=== PATIENT | female | born 1975 | race Caucasian/White ===

== ENCOUNTER → 2017-02-28 | Outpatient (CLI) | payer BC | LOC: LAB 16:23 | DX: R51 Headache (principal) ==

== ENCOUNTER → 2021-07-07 | Outpatient (CLI) | payer OTHER ==
[2021-07-07 17:24] LABS: BASO # 0.02 K/mm3 (0.02-0.10); EOS # 0.21 K/mm3 (0.04-0.40); EOS % 2.6 % (1.0-5.0); HEMATOCRIT 42.1 % (37.0-47.0); HEMOGLOBIN 14.1 g/dL (12.5-16.0); LYMPH# 2.79 K/mm3 (1.50-4.00); MEAN CELL VOLUME 89 fl (78-100); MEAN CORPUSCULAR HEMOGLOBIN 30 pg (27-31); MEAN CORPUSCULAR HGB CONC 34 g/dL (33-37); MEAN PLATELET VOLUME 11.6 fl (7.4-10.4); MONO # 0.55 K/mm3 (0.20-0.80); NEU # 4.44 K/mm3 (1.40-6.50); PLATELET COUNT 279 K/mm3 (130-400); RED BLOOD COUNT 4.73 M/mm3 (4.10-5.30); RED CELL DISTRIBUTION WIDTH 12.4 % (11.5-14.5)
[2021-07-07 17:29] LABS: ALBUMIN 4.3 g/dL (3.5-5.0); POTASSIUM 3.9 mmol/L (3.5-5.1)
[2021-07-07 17:30] LABS: CALCIUM 8.9 mg/dL (8.3-10.5)
[2021-07-07 17:32] LABS: TOTAL PROTEIN 7.3 g/dL (6.4-8.3)
[2021-07-07 17:34] LABS: TOTAL BILIRUBIN 0.3 mg/dL (0.2-1.2)
[2021-07-07 17:38] LABS: MAGNESIUM 1.93 mg/dL (1.60-2.60)
== END ==
LOC: LAB 16:56
PROVIDERS: Physician Assistant
DX: Z00.00 Encounter for general adult medical examination without abnormal findings (principal); Z13.29 Encounter for screening for other suspected endocrine disorder; Z13.1 Encounter for screening for diabetes mellitus; D64.9 Anemia, unspecified; K90.9 Intestinal malabsorption, unspecified; R51.9 Headache, unspecified; R42 Dizziness and giddiness

== ENCOUNTER → 2021-10-03 | Outpatient (CLI) | payer OTHER | LOC: RAD 08:35 | DX: G93.0 Cerebral cysts (principal); G91.9 Hydrocephalus, unspecified | CPT/HCPCS: A9585 ==

== ENCOUNTER → 2021-11-25 | Outpatient (CLI) | payer OTHER ==
[2021-11-25 09:02] LABS: PARTIAL THROMBOPLASTIN TIME 19.8 SECONDS (21.0-32.0); PROTHROMBIN TIME 9.8 SECONDS (9.0-12.0)
== END ==
LOC: LAB 07:56
PROVIDERS: Physician Assistant
DX: Z01.812 Encounter for preprocedural laboratory examination (principal); Z83.2 Family history of diseases of the blood and blood-forming organs and certain disorders involving the immune mechanism